=== PATIENT | female | born 1995 | race Caucasian/White ===

== ENCOUNTER 2016-06-10 20:05 | Emergency (ER) | payer MEDICAID ==
[2016-06-10 20:13] VITALS: BP 125/55; PULSE 73; TEMP 98.7
[2016-06-10 20:14] VITALS: BMI 28.4
[2016-06-10] MEDS ORDERED: Docusate Sodium 100 MG CAP AD ONE ×2 (20:24→21:00)
--- NOTE | 2016-06-10 20:27 | EDPRACDOC ---
- General Information Stated Complaint: DIZZINESS CONGESTION HEAD FEELING FUNNY Time Seen by Provider: 06/10/16 20:16 Information Source: Patient Home Medications: Home Medications Levetiracetam [Keppra] 500 mg PO BID #60 tablet 03/15/16 Fluticasone Propionate [Flonase Nasal [place]] 2 spray ROJAS DAILY #1 each 06/10/16 Allergies/Adverse Reactions: Allergies Allergy/AdvReac Type Severity Reaction Status Date / Time Penicillins Allergy Unknown Verified 03/31/16 10:13 - History of Present Illness Onset: THIS AM HPI: PT C/O DIZZINESS AND NASAL CONGESTION SINCE THIS AM. Current Symptoms: Reports: Nasal Symptoms, Other (DIZZNESS) Shortness of Breath: None Rhinorrhea: Reports: None Ear Symptoms: Reports: Earache (RT) Fever Severity/Quality: Reports: no fever Oral Intake: Normal Urinary Output: Normal Relevant History of: None Associated Signs & Symptoms:: Reports: Nasal Symptoms, Other (DIZZINESS) ED Past Medical History - History Reviewed Yes Nurses notes reviewed and agree except as marked Travel Outside of [place] in the Last 3 Months?: No No Past Medical History: Yes Patient has no past medical history - Patient Medical History Psychological History: Denies: Depression - Social Medical History Smoking Status: Heavy tobacco smoker (5 or more cigarettes/day or daily pipe/ cigar) ETOH: None Substance Abuse: None Lives With: Significant Other Lives In: Home EDM Review of Systems - Review of Systems ROS Negative Except as Marked: Yes All systems reviewed and were negative except as marked Constitutional: No Symptoms Reported. negative: Fever, Chills, Weakness, Fatigue, Loss of Appetite Eyes: No Symptoms Reported. negative: Redness, Blurred Vision, Double Vision, Discharge, Pain, Light Sensitive, Photophobia Ears: Other (FULLNESS RIGHT EAR). negative: Drainage, Ear Pulling, Hearing Loss , Pain Throat: No Symptoms Reported. negative: Pain, Swelling Nose: Congestion. negative: Abrasion, Bleeding, Discharge, Deformity, Ecchymosis, Injection, Laceration, Swelling, Tender Mouth: No Symptoms Reported. negative: Pain, Drooling Respiratory: No Symptoms Reported. negative: Cough, Brassy Cough, Barky Cough, Shortness of Breath, Wheezing, Hemoptysis Cardiovascular: No Symptoms Reported. negative: Chest Pain, Palpitations, Syncope, Edema, Orthopnea, PND, Skin Mottling, Cyanosis Gastrointestinal: No Symptoms Reported. negative: Pain, Constipation, Nausea, Vomiting, Diarrhea, Melena, Formula Intolerance Genitourinary: No Symptoms Reported. negative: Dysuria, Hematuria, Frequency, Discharge, Bleeding, Testicular Pain, Neurological: No Symptoms Reported. negative: Headache, Dizziness, Seizure, Numbness, Weakness, Speech Difficulty, Gait Difficulty Musculoskeletal: No Symptoms Reported. negative: Neck, Chestwall, Ribs, Back, Shoulder, Arm, Elbow, Forearm, Wrist, Hand, Pelvis, Hip, Femur, Knee, Leg, Ankle , Foot Integumentary: No Symptoms Reported. negative: Itching, Rash, Bruising, Wound Allergic/Immunologic: No Symptoms Reported. negative: Hives, Itching Hematologic: No Symptoms Reported. negative: Lymphadenopathy, Easy Bruising, Easy Bleeding Endocrine: No Symptoms Reported. negative: Weight Gain, Weight Loss Psychiatric: No Symptoms Reported. negative: Anxiety, Depression, Hallucinations, Insomnia, Suicidal - Physical Exam Constitutional: No apparent distress, Alert (Awake) Oriented to: Time, Person, Place Last recorded Vital Signs: Last Vital Signs Temp 98.7 F 06/10/16 20:13 Pulse 73 06/10/16 20:13 Resp 20 06/10/16 20:13 BP 125/55 L 06/10/16 20:13 Pulse Ox 97 06/10/16 20:13 Oxygen Pulse Oxygen Saturation 97 O2 Device Oxygen Flow Rate Fraction of Inspired Oxygen ( FIO2) - HEENT Head: Normal ( normocephalic) Eye Exam: Normal (PERRL, EOMI, Sclera white) Oropharynx: Normal (Pharynx:Moist without exudate,Gums-no swelling) Tympanic Membrane: Normal (LEFT), Obscured (RIGHT BY CERUMEN) ENT EAC: Normal TMJ: Normal Nose: Congestion, Swelling (BILATERAL TURBINATES) Neck: Normal (FROM, trachea at midline) - Respiratory/Cardiovascular Respiratory: Normal - CTA (BBS clear to auscultation without adventitious sounds ) Cardiovascular: Normal (RRR without murmur, gallop or rub) - GI Auscultation: Normal (NABS) Palpation: Normal (Soft,No rebound or guarding, non distended) Tenderness: Non tender Pierre's Sign: Negative - Musculoskeletal Back: Normal (Non-Tender) Extremities: Normal (Normal tone, Pulses 2+ No cyanosis or edema, FROM) - Integumentary Skin: Normal, Warm, Dry Lymphatics: Normal (no adenopathy) - Neurologic Memory Impaired: Normal Motor Function: Normal (Normal tone, Pulses 2+ No cyanosis or edema, FROM) Cranial Nerve: Normal (CN II-X11 intact sensation, strength 5/5) Cerebellar: Normal Mood Description: Normal Perception: Normal - Differential Diagnosis Otitis Media (CERUMEN IMPACTION RIGHT EAR CANAL), Sinusitis, URI, Viral - Departure Disposition: Home Condition: Stable Final Diagnosis: Right ear impacted cerumen Upper respiratory infection Qualifiers: URI type: unspecified viral URI Qualified Code(s): J06.9 - Acute upper respiratory infection, unspecified; B97.89 - Other viral agents as the cause of diseases classified elsewhere Instructions: Cerumen Impaction (ED), Upper Respiratory Infection (ED) Education/Counseling Given To: Patient Education/Counseling Given Regarding: Diagnosis, Treatment, Prognosis, Follow Up Referrals: None,No Provider [Primary Care Provider] - One Week Prescriptions: Fluticasone Propionate [Flonase Nasal [place]] 2 spray ROJAS DAILY #1 each
== END 2016-06-10 21:00 | disposition home or self-care (01) ==
LOC: EDMC 20:05
DX: H61.21 Impacted cerumen, right ear (principal); J06.9 Acute upper respiratory infection, unspecified; B97.89 Other viral agents as the cause of diseases classified elsewhere
CPT/HCPCS: 99282; J3490